=== PATIENT | female | born 1950 | race Caucasian/White ===

== ENCOUNTER → 2017-09-21 10:11 | Day surgery (SDC) | payer MEDICARE, BC ==
[~2017-09-21 10:11] MED LIST: Heparin 2 UNITS/ML IVPREMIX* 2,000 ML IV ONE; Heparin(*) 1000 UNIT/ML 10 ML VIAL CATH LAB IV ONE; Iohexol 350 (CONTRAST) 200 ML MDV IV ONE; Lidocaine 1%* 5 ML VIAL ONE; Midazolam* 1 MG/ML 10 ML VIAL (10 MG) ONE; NS 0.9% 1000 ML* 1,000 ML IV SCH; VERAPAMIL 2.5 MG/ML 2 ML VIAL ** 5 mg/2 ml ONE; fentaNYL* 50 MCG/ML 2 ML VIAL (100 MCG VIAL) ONE; nitroGLYCERIN DRIP* 25,000 MCG/250 ML BTL ONE
[2017-09-21 11:07] LABS: ABS Basophils 0 10^3/ul (0-0.2); ABS Eosinophils 0.1 10^3/ul (0-0.6); ABS Lymphocytes 1.4 10^3/ul (1.0-4.8); ABS Monocytes 0.4 10^3/ul (0-0.8); ABS Neutrophils 2.7 10^3/ul (1.5-7.7); ABS Nucleated RBC 0 10^3/ul; Eosinophil % 2.2 % (0-6); Hematocrit 39 % (35-47); Hemoglobin 13.5 g/dl (12.0-16.0); Lymphocyte % 29.8 % (25-47); Mean Corpuscular HGB Conc 34 g/dl (31-36); Mean Corpuscular Hemoglobin 31 pg (27-31); Mean Corpuscular Volume 90 fL (80-97); Mean Platelet Volume 7.7 um3 (7.4-10.4); Nucleated Red Blood Cells % 0.1; Platelet Count 180 10^3/ul (150-450); Red Blood Count 4.36 10^6/ul (4.00-5.40); Red Cell Distribution Width 13 % (10.5-15); White Blood Count 4.7 10^3/ul (3.5-10.8)
[2017-09-21 11:38] LABS: EGFR Non-African American 117.6 (>60)
[2017-09-21 14:21] VITALS: BP 113/69
--- NOTE | 2017-09-22 02:19 | CATH ---
CC: Leigh Bray NP; Dr. Burch; Dr. Moreno * CATH REPORT: DATE OF PROCEDURE: 09/21/17 - [facility] CATH PRIMARY CARE PHYSICIAN: Leigh Bray NP. REFERRING [employer] SUPERVISOR: Dr. Burch. CARDIAC SURGEON: Dr. Moreno at [facility] [place]. PROCEDURE: Right radial artery access bilateral selective coronary cineangiography. HISTORY: A 67-year-old woman with severe aortic stenosis/aortic insufficiency referred for coronary angiography. PROCEDURE ACCESS: Right radial artery sheath 6F slender. MEDICATIONS: 1. Subcu lidocaine. 2. IV Versed. 3. IV Fentanyl. 4. Heparin 3000 units. 5. Verapamil 3 mg. 6. Nitroglycerin 300 mcg IA. DIAGNOSTIC CATHETER: 5F TIG 4. HEMODYNAMICS: Initial BP 145/59. Final BP 119/52. ANGIOGRAPHY: There is visible calcification of the aortic knob. RCA: The RCA is dominant, moderate, has a proximal to mid intermediate stenosis of approximately 70% with tandem lesions, this is followed by 30% stenosis. The PDA is relatively small, followed by very small posterolateral. Incidentally noted is calcification of the aortic valve leaflets which exhibit diminished excursion. Left Main: The left main has a distal superior calcified less than 30% stenosis. LAD: The LAD is moderate, extends to the apex, the LAD has proximal calcification, the LAD supplies a moderate first diagonal, the LAD has no significant stenosis. Circumflex: The circumflex is not dominant, is moderate, has proximal calcification, has a less than 30% proximal stenosis, supplies a small marginal followed by a moderate posterolateral. The circumflex has no significant stenosis. CONCLUSION: 1. Single vessel disease with significant RCA stenosis. She has atherosclerosis without obstruction, within the left main and the left coronary system as well. 2. Significant aortic valve stenosis by noninvasive testing. 3. Successful right radial artery access. [id number]/[facility] #: [id number] [facility]
== END | disposition home or self-care (01) ==
LOC: CHICATH 10:11
PROVIDERS: ATTEND Internal Medicine Cardiovascular Disease
DX: I35.0 Nonrheumatic aortic (valve) stenosis (principal); I25.10 Atherosclerotic heart disease of native coronary artery without angina pectoris; R53.83 Other fatigue; R42 Dizziness and giddiness; E03.9 Hypothyroidism, unspecified
CPT/HCPCS: 36415; 80048; 80061; 85025; 93454; 99156; J1644; J2250; J3010